=== PATIENT | female | born 1960 | race Caucasian/White ===

== ENCOUNTER 2025-02-17 15:45 | Emergency (ER) | payer BC, SELFPAY ==
[2025-02-17] VITALS (7 sets, daily range): BP systolic 133–157; BP diastolic 70–82; BMI 28.3
--- NOTE | 2025-02-17 18:50 | DOWNTIME ---
There was a [employer] Downtime on 02/17/2025 from 1230 to 02/17/2025 at 1550. Downtime documentation of patient's care, including medication administrations, has been reconciled in the electronic record per guidelines. Refer to the
patient's paper chart under the miscellaneous tab to see printed paper medication records and downtime forms.
--- NOTE | 2025-02-17 19:44 | ED.GENMED ---
History of Present Illness
General
Chief Complaint: Chest Pain
Source: patient
Exam Limitations: none
Time Seen by Provider: 02/17/25 19:27
Nursing documentation reviewed up to this point in time: agreed with
History of Present Illness
History of Present Illness:
64-year-old female shortness of breath for a few days made an appointment to see cardiology tomorrow felt low back pain fatigue no dysuria or frequency, had chills, sore throat, saw PCP had a negative urine and COVID, not eating or drinking much,
had a fatty meal which's things upset her esophagitis/pancreatitis, already had her gallbladder out,
Past History
Past History
ED Past Medical History: GERD, HTN, Hypercholesterolemia, Psychiatric (Anxiety, Depression, ADHD) and Other (PNA, Glaucoma, pancreatitis)
ED Past Surgical History: Cholecystectomy, and Gynecological (Breast reduction)
Social History
Tobacco: Former smoker
Alcohol: None
Drug: None
Personal:
Living: with family
Employment: Retired
Family History
Family History: CAD; Negative Early CAD
Review of Systems
Review of Systems
All Other Systems: Not applicable
Constitutional: Reports fatigue and chills; Denies fever
EENT: Reports sore throat
Respiratory: Reports trouble breathing
Cardiac: Denies chest pain
ABD/GI: Denies nausea or diarrhea
: Reports flank pain; Denies dysuria or incontinence
Musculoskeletal: Reports back pain
Skin: Reports no symptoms
Neurological: Reports weakness
Endocrine: Reports no symptoms
Hematologic/Lymphatic: Reports no symptoms
Psychiatric: Reports no symptoms
Phy Exam
Physical Exam
Physical Exam:
Physical Exam
General: no apparent distress, not acutely ill
Neck: Red throat no exudate
Heart: s1/s2 regular rate and rhythm, no murmur. equal radial pulses.
Lungs: No wheeze
Abdomen: Soft nontender no CVA
Neuro: alert and oriented. no focal neurological deficits
Skin: no rash
Psychiatric: well kept. interactive and cooperative
Extremities: no edema. no calf tenderness.
Scores
Heart Score for Chest Pain Patients
STEMI patient?: No
History: Slightly or Non-Suspicious
ECG: Normal
Age: >45 - <65 years
Risk Factors: 1 or 2 Risk Factors
Troponin: </= Normal Limit
Heart Score for Chest Pain Patients: 2
Heart Score Risk: 2.5% MACE over next 6 weeks
Course
Orders/Labs/Results
Orders:
Orders
02/17/25
Electrocardiogram (*1) Stat
Reason for Study: Chest Pain
Comment: DONE
02/17/25 19:31
Electrocardiogram (*1) Stat
Reason for Study: Other
Other Reason for Exam: chest pain
Cardiac Monitoring- Treatment ONCE
EKG- Treatment ONCE
CR Chest - 2 Views Urgent
Comment:
Reason For Exam: sob
02/17/25 19:38
Complete Blood Count/With Diff Urgent
Comprehensive Metabolic Panel Urgent
Lipase Urgent
Magnesium Urgent
NT-proBNP Urgent
TSH Urgent
Troponin I Urgent
02/17/25 19:41
Acetaminophen [Tylenol] 650 mg PO NOW STA
02/17/25 19:43
COVID-19 Antigen Urgent
Source: Nasal Swab
Influenza A+B Rapid Molecular Urgent
[place] Source: Nasal Swab
Specimen Description:
02/17/25 19:46
Rapid Strep Group A Urgent
[place] Source: Throat/Pharynx
Specimen Description:
Date Specimen was Collected: 02/17/25
Time Specimen was Collected: 19:44
02/17/25 20:46
0.9% Sodium Chloride 1000 ml [Nss] 1,000 ml IV BOLUS
02/17/25 21:45
Urinalysis Reflex To Culture Urgent
Date Specimen was Collected: 02/17/25
Time Specimen was Collected: 21:44
Abnormal Lab Results
02/17/25 02/17/25
19:38 21:45
WBC 12.3 H 10^3/uL
(4.8-10.8)
RBC 3.91 L 10^6/uL
(4.20-5.40)
Hct 33.8 L %
(37.0-47.0)
MCH 31.7 H pg
(27.0-31.0)
RDW 14.6 H %
(11.5-14.5)
Abs Immat Gran (auto) 0.1 H 10^3/uL
(0-0.05)
Absolute Neuts (auto) 9.5 H 10^3/uL
(1.4-6.5)
Absolute Monos (auto) 0.8 H 10^3/uL
(0.1-0.6)
Neutrophils % 77.0 H %
(42.2-75.2)
Lymphocytes % 14.2 L %
(20.5-51.1)
Glucose 107 H mg/dl
(70-99)
Total Bilirubin 1.7 H mg/dl
(0.2-1.3)
ALT 37 H U/L
(0-35)
Urine Ketones 2+ A
(Negative)
02/17/25 19:38
02/17/25 19:38
Vital Signs
Initial and Last Documented VS:
Initial Vital Signs
BP
156/79
02/17/25 18:12
Last Documented Vital Signs
Pulse Resp BP Pulse Ox
72 13 133/70 96
02/17/25 22:30 02/17/25 22:30 02/17/25 22:00 02/17/25 22:30
MDM/Problems Addressed
Differential Diagnosis Includes:
Bronchitis pneumonia strep dehydration pneumonia pancreatitis viral syndrome UTI
MDM/Problems Addressed:
Fatigue shortness of breath sore throat
Chronic conditions affecting care: Previous abdomnial surgery
Acute Exacerbation and/or Progression of Chronic Illness: Previous abdomnial surgery
*EKG
Interpreted by ED Provider?: Yes
Interpretation: abnormal
Comparison EKG: changes noted
Heart Rate: 88
Rate: normal
Rhythm: sinus
Ischemia: T-wave inversion
*Building Admin Interpretation
Rate: normal
Interpretation: normal
Heart Rate: 78
Rhythm: sinus
*Critical Care Note
Total Time (30-74mins, 75-104mins- exclusive of procedures): Not Applicable
Update Note
Update Note:
Update labs noted chest x-ray noted cardiac markers noted patient looks well believe she can be safely discharged to follow-up with her outpatient physicians
ED Attending Note
-
Portions of this chart may have been created with voice recognition software.� Occasional wrong word or��sound alike� substitutions may have occurred due to the inherent limitations of voice recognition software.
Discharge Plan
Departure
Patient Disposition: Home (Routine Discharge)
Date of Disposition: 02/17/25
Time of Disposition: 22:19
Patient with high blood pressure during this ER visit?: No
Condition: Good
Discharge Problem:
GERD (gastroesophageal reflux disease)
Instructions: Acid Reflux and GERD in Adults (DC)
Prescriptions:
No Action
fluoxetine [Prozac] 40 MG capsule
60 mg PO HS
famotidine [Pepcid AC] 10 MG tablet,chewable
10 mg PO DAILY PRN (Reason: gerd)
lorazepam 0.5 MG tablet
0.5 mg PO DAILY PRN (Reason: anxiety)
amoxicillin-pot clavulanate 1 TABLET tablet
1 tab PO Q12 Qty: 10 0RF
Saccharomyces boulardii [Florastor] 250 MG capsule
250 mg PO DAILY Qty: 14 0RF
Referrals:
Duc Welch DO [Family Provider, Family Practice] - Next open appointment
Activity Restrictions/Additional Instructions:
Drink plenty of fluids keep your appointment with cardiology tomorrow
Return to the ER if worsening symptoms
Interventions
Interventions:
*Risk Screen - Suicide Last Done: 02/17/25 19:09
*General Assessment Last Done: 02/17/25 19:09
*Neglect/Abuse Screening Last Done: 02/17/25 19:09
*ED- Fall Risk Assessment Last Done: 02/17/25 19:09
*ED COVID-19 Vaccine History Last Done: 02/17/25 19:09
*Nursing Disposition Last Done: 02/17/25 22:44
ED- Cardiac Assessment Last Done: 02/17/25 19:09
Discharge Date and Time
Discharge Date/Time: 02/17/25 22:44
Print Language: OMANI
[2025-02-17 19:59] LABS: % Basophils 0.3 % (0-2); % Eosinophils 1.3 % (0-6); % Immature Granulocytes 0.4 % (0-0.5); % Lymphocytes 14.2 % (20.5-51.1); % Monocytes 6.8 % (1.7-9.3); Absolute Eosinophils 0.2 10^3/uL (0-0.7); Absolute Immature Granulocytes 0.1 10^3/uL (0-0.05); Absolute Lymphocytes 1.7 10^3/uL (1.2-3.4); Absolute Monocytes 0.8 10^3/uL (0.1-0.6); Absolute Neutrophils 9.5 10^3/uL (1.4-6.5); Hematocrit 33.8 % (37.0-47.0); Hemoglobin 12.4 g/dL (12.0-16.0); Mean Corp Hgb Conc. 36.7 g/dL (33.0-37.0); Mean Corpuscular Hgb 31.7 pg (27.0-31.0); Mean Corpuscular Volume 86.4 fL (81.0-99.0); Mean Platelet Volume 9.9 fL (7.4-10.4); Nucleated Red Blood Cells % 0 %; Platelet Count 213 10^3/uL (130-400); Red Blood Cell Count 3.91 10^6/uL (4.20-5.40); Red Cell Dist. Width 14.6 % (11.5-14.5); White Blood Cell Count 12.3 10^3/uL (4.8-10.8)
[2025-02-17] MEDS: TYLENOL 650 MG PO (20:07)
[2025-02-17 20:09] LABS: ALT (SGPT) 37 U/L (0-35); AST (SGOT) 24 U/L (14-36); Albumin 4.5 g/dl (3.5-5.0); Alkaline Phosphatase 99 U/L (38-126); Blood Urea Nitrogen 12 mg/dl (7-17); Calcium 9.4 mg/dl (8.4-10.2); Carbon Dioxide 27 mmol/L (22-30); Chloride 105 mmol/L (98-107); Estimated Creatinine Clearance 89 ml/min; Glucose 107 mg/dl (70-99); Lipase 45 U/L (23-300); Magnesium 2.3 mg/dl (1.6-2.3); Sodium 139 mmol/L (135-145); Total Bilirubin 1.7 mg/dl (0.2-1.3); Total Protein 7.4 g/dl (6.3-8.2); eGFR > 60.00
[2025-02-17 20:14] LABS: COVID-19 Antigen Negative (Negative)
[2025-02-17 20:20] LABS: NT-proBNP 85.7 pg/ml; Troponin I < 0.012 ng/ml
[2025-02-17 20:40] LABS: TSH 1.14 uIU/ml (0.47-4.68)
[2025-02-17] MEDS: NSS 1000 IV (21:17)
[2025-02-17 21:51] LABS: Urine Albumin Negative (Neg - Trace); Urine Bilirubin Negative (Negative); Urine Character Clear (Clear); Urine Color Yellow; Urine Glucose Negative (Negative); Urine Ketone 2+ (Negative); Urine Leukocyte Negative (Negative); Urine Nitrite Negative (Negative); Urine Occult Blood Negative (Negative); Urine Urobilinogen Negative (Neg - 1+)
== END 2025-02-17 22:44 | disposition home or self-care (01) ==
LOC: EMR 15:45
PROVIDERS: EMERGENCY PHYSICIAN Emergency Medicine; FAMILY PHYSICIAN Family Medicine
DX: K21.9 Gastro-esophageal reflux disease without esophagitis (principal); R07.89 Other chest pain; E78.00 Pure hypercholesterolemia, unspecified; I10 Essential (primary) hypertension; Z87.891 Personal history of nicotine dependence; Z90.49 Acquired absence of other specified parts of digestive tract
CPT/HCPCS: 96360; 99285; 71046; 80053; 81003; 83690; 83735; 83880; 84443; 84484; 85025; 87070; 87502; 87811; 87880; 93005

== ENCOUNTER → 2025-05-14 11:26 | Outpatient (REF) | payer BC, SELFPAY | LOC: HWRCS 11:26 | PROVIDERS: ATTENDING PHYSICIAN Internal Medicine Cardiovascular Disease; FAMILY PHYSICIAN Family Medicine | DX: R06.09 Other forms of dyspnea (principal); R07.2 Precordial pain; R94.31 Abnormal electrocardiogram [ECG] [EKG] | CPT/HCPCS: 78452; 93017; A9500 ==

== ENCOUNTER → 2025-07-13 13:05 | Outpatient (REF) | payer BC, SELFPAY | LOC: RAD 13:05 | PROVIDERS: ATTENDING PHYSICIAN Physician Assistant; FAMILY PHYSICIAN Family Medicine | DX: R10.9 Unspecified abdominal pain (principal) | CPT/HCPCS: 74018 ==

== ENCOUNTER → 2025-09-03 14:58 | Outpatient (REF) | payer BC, SELFPAY | LOC: HWRAD 14:58 | PROVIDERS: ATTENDING PHYSICIAN Family Medicine | DX: E04.9 Nontoxic goiter, unspecified (principal) | CPT/HCPCS: 76536 ==